=== PATIENT | male | born 1950 | race Caucasian/White ===

== ENCOUNTER 2019-07-21 05:46 | Inpatient (IN) ==
[2019-07-21] MEDS ORDERED: DIAZEPAM 5 MG TABLET ONE (05:51)
[2019-07-21] MEDS ORDERED: ALVIMOPAN 12 MG CAPSULE ONE (05:51)
[2019-07-21] MEDS ORDERED: FAMOTIDINE 20 MG TABLET ONE (05:52)
[2019-07-21] MEDS ORDERED: ACETAMINOPHEN 500 MG TABLET ONE (05:52)
[2019-07-21] MEDS ORDERED: ACETAMINOPHEN 500 MG TABLET PO ONE (06:00)
[2019-07-21] MEDS ORDERED: cefOXitin 1,000 MG in SYRINGE 1 EACH IV ONE (06:00)
[2019-07-21] MEDS ORDERED: DIAZEPAM 5 MG TABLET PO ONE (06:00)
[2019-07-21] MEDS ORDERED: ALVIMOPAN 12 MG CAPSULE PO ONE (06:00)
[2019-07-21] MEDS ORDERED: FAMOTIDINE 20 MG TABLET PO ONE (06:00)
[2019-07-21] MEDS: LACTATED RINGERS 1,000 ML IV SCH ×3 (06:45→16:03)
[2019-07-21] MEDS ORDERED: BUPIVACAINE 0.5% 50 ML VIAL ONE (07:51)
[2019-07-21] MEDS ORDERED: DEXAMETHASONE 4 MG/1 ML VIAL ONE (07:51)
[2019-07-21] MEDS ORDERED: SUGAMMADEX 200 MG/2 ML VIAL IV ONE (08:36)
[2019-07-21] MEDS ORDERED: ONDANSETRON 4 MG/2 ML VIAL IV PRN ×2 (09:36→11:39)
[2019-07-21] MEDS ORDERED: HYDROmorphone 2 MG/1 ML VIAL IV PRN ×3 (09:36→11:39)
[2019-07-21] MEDS ORDERED: LIDOCAINE 2% 5 ML VIAL ONE (10:25)
[2019-07-21] MEDS ORDERED: SEVOFLURANE 1 UNIT/15 MINUTE INH ONE (10:25)
[2019-07-21] MEDS ORDERED: PROPOFOL 200 MG/20 ML VIAL IV ONE (10:25)
[2019-07-21] MEDS ORDERED: GLYCOPYRROLATE 0.4 MG/2 ML VIAL ONE (10:26)
[2019-07-21] MEDS ORDERED: ONDANSETRON 4 MG/2 ML VIAL ONE (10:26)
[2019-07-21] MEDS ORDERED: MIDAZOLAM 2 MG/2 ML VIAL ONE (10:26)
[2019-07-21] MEDS ORDERED: PHENYLEPHRINE 1 MG/10 ML SYRINGE IV ONE (10:26)
[2019-07-21] MEDS ORDERED: ROCURONIUM 100 MG/10 ML VIAL IV ONE (10:26)
[2019-07-21] MEDS ORDERED: LACTATED RINGERS 1,000 ML IV ONE (10:26)
[2019-07-21] MEDS ORDERED: fentaNYL 100 MCG/2 ML VIAL ONE ×2 (10:26)
[2019-07-21] MEDS ORDERED: ACETAMINOPHEN 325 MG TABLET PO PRN (11:39)
[2019-07-21] MEDS ORDERED: ALBUTEROL/IPRATROPIUM 3 ML NEB RESP TX PRN (11:39)
[2019-07-21] MEDS: KETOROLAC 15 MG/1 ML VIAL IV PRN (16:37)
[2019-07-21] MEDS: FAMOTIDINE 20 MG/2 ML VIAL IV SCH (20:21)
[2019-07-21] MEDS: ALVIMOPAN 12 MG CAPSULE PO SCH (20:21)
[2019-07-22] MEDS: LACTATED RINGERS 1,000 ML IV SCH ×4 (02:25→20:27)
[2019-07-22] MEDS: KETOROLAC 15 MG/1 ML VIAL IV PRN ×3 (03:45→20:33)
[2019-07-22 05:12] LABS: Basophils % 0.3 % (0.0-0.8); Hematocrit 37.3 VOL% (42.0-52.0); Hemoglobin 12.2 GM/DL (14.0-18.0); Immature Granulocytes % 0.2 %; Immature Granulocytes Absolute 0.02 #; Lymphocytes # 1.6 10*3/uL (1.4-4.0); Lymphocytes % 16.5 % (21.2-54.2); Mean Corpuscular HGB Conc 32.7 GM/DL (32-36); Mean Platelet Volume 9.2 FL (9.6-12.0); Monocytes % 7.4 % (1.7-12.7); Neutrophils % 75.6 % (38.7-73.9); Platelet Count 230 T/CUMM (130-400); Red Cell Distribution Width 13.2 % (9.3-17.3); White Blood Count 9.5 T/CUMM (4-12)
[2019-07-22 05:36] LABS: Osmolality,Calculated 281.3 MOS/KG (273-304)
[2019-07-22] MEDS: ENOXAPARIN 40 MG/0.4 ML SYRINGE SUBCUT SCH (05:48)
[2019-07-22] MEDS ORDERED: PANTOPRAZOLE 40 MG VIAL IV SCH (09:00)
[2019-07-22] MEDS: FAMOTIDINE 20 MG/2 ML VIAL IV SCH ×2 (09:32→20:29)
[2019-07-22] MEDS: ALVIMOPAN 12 MG CAPSULE PO SCH ×2 (10:21→20:29)
[2019-07-23] MEDS: LACTATED RINGERS 1,000 ML IV SCH (04:23)
[2019-07-23 05:08] LABS: Basophils % 0.5 % (0.0-0.8); Eosinophils % 0.2 % (0.00-10.9); Hematocrit 38.3 VOL% (42.0-52.0); Hemoglobin 12.6 GM/DL (14.0-18.0); Immature Granulocytes % 0.3 %; Immature Granulocytes Absolute 0.03 #; Lymphocytes # 1.6 10*3/uL (1.4-4.0); Mean Corpuscular HGB Conc 32.9 GM/DL (32-36); Mean Corpuscular Volume 91.8 FL (87-102); Mean Platelet Volume 9.3 FL (9.6-12.0); Monocytes % 6.5 % (1.7-12.7); Neutrophils % 74.5 % (38.7-73.9); Platelet Count 234 T/CUMM (130-400); Red Blood Count 4.17 MC/CUMM (3.8-5.5); Red Cell Distribution Width 13.2 % (9.3-17.3); White Blood Count 8.7 T/CUMM (4-12)
[2019-07-23 05:42] LABS: Calcium 8.6 MG/DL (8.5-10.1); Osmolality,Calculated 288.6 MOS/KG (273-304)
[2019-07-23] MEDS: ENOXAPARIN 40 MG/0.4 ML SYRINGE SUBCUT SCH (06:57)
[2019-07-23] MEDS: KETOROLAC 15 MG/1 ML VIAL IV PRN (07:01)
[2019-07-23] MEDS: FAMOTIDINE 20 MG/2 ML VIAL IV SCH (09:48)
[2019-07-23 12:24] VITALS: BP 151/83
== END 2019-07-23 15:30 | disposition home or self-care (01) | DRG 330 ==
LOC: N.OR 05:46 → N.SDSINP 05:46 → N.3E 10:36
PROVIDERS: ADMIT Surgery; ATTEND Surgery